=== PATIENT | female | born 1985 | race Caucasian/White ===

== ENCOUNTER 2017-10-28 18:02 | Emergency (ER) | payer OTHER, MEDICAID ==
[2017-10-28 18:12] VITALS: BP 144/65
--- NOTE | 2017-10-28 18:43 | UC ---
Throat Pain/Nasal [place] HPI - HPI Summary HPI Summary: 32 yo female with greater than one week hx of nasal congestion /post nasal drip/ facial pressure and pain as well as sore throat taking po well febrile day one of illness cough (non productive) no CP or SOB she is 34 wks has has noted good activity today - History of Current Complaint Chief Complaint: UCRespiratory Stated Complaint: SORE THROAT Time Seen by Provider: 10/28/17 18:12 Hx Obtained From: Patient Hx Last Menstrual Period: 07/11/15 Onset/Duration: Gradual Onset, Lasting Days - 7 or more Severity: Moderate Pain Intensity: 4 Pain Scale Used: 0-10 Numeric Cough: Nonproductive Associated Signs & Symptoms: Positive: Sinus Discomfort, Nasal Discharge - Allergies/Home Medications Allergies/Adverse Reactions: Allergies Allergy/AdvReac Type Severity Reaction Status Date / Time Sulfa Drugs Allergy Intermediate Hives Verified 10/28/17 18:12 Codeine AdvReac Severe Hallucinati Verified 10/28/17 18:12 ons Home Medications: Home Medications Labetalol TAB* [Trandate TAB*] 200 mg PO BID 10/28/17 [History Confirmed ] PMH/Surg Hx/FS Hx/Imm Hx Previously Healthy: Yes Cardiovascular History: Hypertension - Surgical History Surgical History: Yes Surgery Procedure, Year, and Place: Tonsillectomy as child, right wrist ganglion cyst excision. - Family History Known Family History: Positive: Hypertension - Social History Alcohol Use: None Substance Use Type: None Smoking Status (MU): Never Smoked Tobacco Type: Cigarettes Have You Smoked in the Last Year: No When Did the Patient Quit Smoking/Using Tobacco: 4 yrs ago Review of Systems Constitutional: Negative Skin: Negative Eyes: Negative ENT: Sore Throat, Nasal Discharge, Sinus Congestion, Sinus Pain/Tenderness Respiratory: Negative Cardiovascular: Negative Gastrointestinal: Negative Genitourinary: Negative Motor: Negative Neurovascular: Negative Musculoskeletal: Negative Neurological: Negative Psychological: Negative Is Patient Immunocompromised?: No All Other Systems Reviewed And Are Negative: Yes Physical Exam Triage Information Reviewed: Yes Appearance: Well-Appearing, No Pain Distress, Well-Nourished Vital Signs: Initial Vital Signs Temp 97.1 F 10/28/17 18:09 Pulse 105 10/28/17 18:09 Resp 18 10/28/17 18:09 BP 144/65 10/28/17 18:09 Pulse Ox 99 01/08/18 18:09 Vital Signs Reviewed: Yes Eyes: Positive: Conjunctiva Clear ENT: Positive: Hearing grossly normal, Pharyngeal erythema, Nasal congestion, Nasal drainage, TMs normal, Sinus tenderness - left max>right max, Uvula midline. Negative: TM bulging, TM dull, TM red, Tonsillar swelling, Tonsillar exudate, Trismus, Muffled voice, Hoarse voice, Dental tenderness Dental Exam: Normal Neck: Positive: Supple, Nontender, No Lymphadenopathy Respiratory: Positive: Lungs clear, Normal breath sounds, No respiratory distress, No accessory muscle use Cardiovascular: Positive: RRR, No Murmur Abdomen Description: Positive: Other: - gravid uterus Musculoskeletal: Positive: ROM Intact, No Edema Neurological: Positive: Alert Psychological Exam: Normal Skin Exam: Normal Throat Pain/Nasal Course/Dx - Differential Dx/Diagnosis Provider Diagnoses: acute sinusitis Discharge - Discharge Plan Condition: Stable Disposition: HOME Prescriptions: Amoxicillin PO (*) [Amoxicillin 875 MG (*)] 875 mg PO BID #14 tab Patient Education Materials: Sinusitis (ED) Referrals: Tiesha Berg [employer] [Primary Care Provider] - 4 Days (if not better) Additional Instructions: warm compresses saline nasal spray
== END 2017-10-28 18:47 | disposition home or self-care (01) ==
LOC: UCEAST 18:02
DX: O26.893 Other specified pregnancy related conditions, third trimester (principal); J01.90 Acute sinusitis, unspecified; J02.9 Acute pharyngitis, unspecified; Z3A.34 34 weeks gestation of pregnancy; I10 Essential (primary) hypertension; Z88.5 Allergy status to narcotic agent; Z88.2 Allergy status to sulfonamides; Z87.891 Personal history of nicotine dependence
CPT/HCPCS: 87651; 99212; G0463

== ENCOUNTER 2019-02-04 10:15 | Emergency (ER) | payer MEDICAID, OTHER ==
[2019-02-04 10:40] VITALS: BP 121/74
--- NOTE | 2019-02-04 10:51 | UC ---
Throat Pain/Nasal [place] HPI - HPI Summary HPI Summary: 33-year-old female presents with 3 day history of sore throat. Reports some mild nasal congestion which she normally has due to some environmental allergies. States her son was diagnosed last week with strep throat and scarlet fever. Denies fever, chills, ear pain, dysphagia, chest pain, cough, abdominal pain, nausea, or vomiting. - History of Current Complaint Chief Complaint: UCGeneralIllness Stated Complaint: SINUS ISSUE SORE THROAT Time Seen by Provider: 02/04/19 10:33 Hx Obtained From: Patient Hx Last Menstrual Period: 01/19/19 Pain Intensity: 2 - Allergies/Home Medications Allergies/Adverse Reactions: Allergies Allergy/AdvReac Type Severity Reaction Status Date / Time codeine Allergy Hallucinati Verified 02/04/19 10:22 ons Sulfa (Sulfonamide Allergy Hives Verified 02/04/19 10:22 Antibiotics) Home Medications: Home Medications ARIPiprazole [Aripiprazole] 2 mg PO DAILY 02/04/19 [History Confirmed 02/04/19] Venlafaxine ER (NF) [Effexor ER (NF)] 150 mg PO DAILY 02/04/19 [History Confirmed 02/04/19] clonazePAM TAB(*) [Klonopin TAB(*)] 0.5 mg PO PRN 02/04/19 [History] PMH/Surg Hx/FS Hx/Imm Hx GI/ History: Gastroesophageal Reflux Psychological History: Anxiety, Depression - Surgical History Surgical History: Yes Surgery Procedure, Year, and Place: Tonsillectomy as child, right wrist ganglion cyst excision. - Family History Known Family History: Positive: Hypertension - Social History Occupation: Unemployed Lives: With Family Alcohol Use: None Substance Use Type: None Smoking Status (MU): Never Smoked Tobacco Type: Cigarettes Have You Smoked in the Last Year: No When Did the Patient Quit Smoking/Using Tobacco: 4 yrs ago Review of Systems All Other Systems Reviewed And Are Negative: Yes Constitutional: Negative: Fever, Chills Skin: Negative: Rash Eyes: Negative: Drainage, Eye Redness ENT: Positive: Sore Throat, Sinus Congestion. Negative: Ear Ache, Nasal Discharge, Sinus Pain/Tenderness Respiratory: Negative: Shortness Of Breath, Cough Cardiovascular: Negative: Palpitations, Chest Pain Gastrointestinal: Negative: Abdominal Pain, Vomiting, Diarrhea, Nausea Genitourinary: Positive: Negative Musculoskeletal: Positive: Negative Neurological: Positive: Negative Is Patient Immunocompromised?: No Physical Exam - Summary Physical Exam Summary: GENERAL APPEARANCE: Well developed, well nourished, alert and cooperative, and appears to be in no acute distress. EYES: Conjunctiva clear. No drainage. EARS: External auditory canals and tympanic membranes clear, hearing grossly intact. NOSE: Mild nasal congestion. No nasal discharge. THROAT: Pharyngeal erythema with exudate. Tonsils surgically absent. Uvula midline. Oral cavity normal. Teeth and gingiva in good general condition. NECK: Neck supple, non-tender without lymphadenopathy. CARDIAC: Normal S1 and S2. No S3, S4 or murmurs. Rhythm is regular. There is no peripheral edema, cyanosis or pallor. Extremities are warm and well perfused. Capillary refill is less than 2 seconds. Peripheral pulses intact. LUNGS: Clear to auscultation without rales, rhonchi, wheezing or diminished breath sounds. ABDOMEN: Positive bowel sounds. Soft, nondistended, nontender. No guarding or rebound. No masses or hepatosplenomegally. MUSKULOSKELETAL: ROM intact to all extremities. No joint erythema or tenderness. Normal muscular development. Normal gait. SKIN: Skin normal color, texture and turgor with no lesions or eruptions. Triage Information Reviewed: Yes Vital Signs: Initial Vital Signs Temp 98.8 F 02/04/19 10:23 Pulse 95 02/04/19 10:23 Resp 17 02/04/19 10:23 BP 121/74 02/04/19 10:23 Pulse Ox 98 02/04/19 10:23 Vital Signs Reviewed: Yes Throat Pain/Nasal Course/Dx - Course Course Of Treatment: 33-year-old female presents with 3 day history of sore throat. Reports some mild nasal congestion which she normally has due to some environmental allergies. States her son was diagnosed last week with strep throat and scarlet fever. Denies fever, chills, ear pain, dysphagia, chest pain, cough, abdominal pain, nausea, or vomiting. Afebrile. Vital signs stable. Exam was remarkable for pharyngeal erythema with some exudate, tonsils are surgically absent. Rapid strep test was positive. Will treat her with a ten-day course of amoxicillin 500 mg twice a day as well as symptomatic treatment. She is to return here or follow-up with her primary care provider in 5-7 days if symptoms persist. It is very guidance and warning symptoms were reviewed with the patient. Verbalized understanding and agrees with plan of care. - Differential Dx/Diagnosis Differential Diagnosis/HQI/PQRI: Influenza, Pharyngitis, Sinusitis, Tonsillitis , URI Provider Diagnosis: Strep pharyngitis Discharge - Sign-Out/Discharge Documenting (check all that apply): Patient Departure All imaging exams completed and their final reports reviewed: No Studies - Discharge Plan Condition: Stable Disposition: HOME Prescriptions: Amoxicillin 500 mg PO BID #20 capsule Patient Education Materials: Strep Throat (ED) Referrals: Tiesha Berg NP [Primary Care Provider] - Additional Instructions: Your rapid strep test in the clinic today was positive. We will start you on an antibiotic to treat the infection. Start amoxicillin 500 mg 1 capsule twice a day for 10 days.. After you have been on antibiotics for 3 days, throw out your toothbrush and replace with a new one to prevent reinfection. Drink plenty of fluids to avoid dehydration especially if you are running any fever. Use salt water gargles several times a day. Take over the counter acetaminophen (Tylenol) or ibuprofen (Advil, Motrin) according to directions as needed for pain or fever. You may also use Chloraseptic spray or Cepacol lonzenges according to directions which contain a numbing medication and can provide some temporary relief from your sore throat. Return here or follow up with your primary care provider in 5-7 days if no improvement in symptoms. Seek immediate medical attention in the emergency room if you have fever greater than 100.5 F despite taking acetaminophen or ibuprofen, are unable to swallow or develop drooling, are unable to open your mouth fully, are unable to eat or drink, have pain that is not relieved with over the counter pain medication, or have any difficulty breathing. - Billing Disposition and Condition Condition: STABLE Disposition: Home
== END 2019-02-04 11:03 | disposition home or self-care (01) ==
LOC: UCEAST 10:15
DX: J02.0 Streptococcal pharyngitis (principal); R09.81 Nasal congestion; K21.9 Gastro-esophageal reflux disease without esophagitis; F41.9 Anxiety disorder, unspecified; F32.9 Major depressive disorder, single episode, unspecified; Z88.5 Allergy status to narcotic agent; Z88.2 Allergy status to sulfonamides; Z87.891 Personal history of nicotine dependence
CPT/HCPCS: 87651; 99212; G0463